=== PATIENT | female | born 1955 | race Caucasian/White ===

== ENCOUNTER 2021-03-06 10:29 | Outpatient (REF) | payer BC, SELFPAY ==
[2021-03-06 10:33] LABS: MANUAL DIFF FLAG NO
[2021-03-06 10:41] LABS: Basophils Percent Auto 0.8 % (0-2); Eosinophils Absolute Auto 0.1 X10*3/uL (0.0-0.4); Eosinophils Percent Auto 2.1 % (0-4); Hematocrit 40.9 % (37-47); Hemoglobin 13.2 g/dl (12.0-16.0); Imm Gran Abs Auto 0.01 X10*3/uL (0.00-0.03); Imm Gran Pct Auto 0.2 % (0.0-0.4); Mean Corpuscular HGB Conc 32.3 g/dl (31.0-35.0); Mean Corpuscular Hemoglobin 30.9 pg (27.0-33.0); Mean Corpuscular Volume 95.8 fL (80-98); Mean Platelet Volume 10.6 fL (9.4-12.3); Monocytes Absolute Auto 0.4 X10*3/uL (0.1-1.2); Monocytes Percent Auto 8.7 % (2-11); Neutrophils Absolute Auto 2.2 X10*3/uL (2.0-8.3); Neutrophils Percent Auto 46.2 % (45-73); Platelet Count 278 X10*3/uL (160-400); Red Blood Count 4.27 X10*6/uL (4.20-5.50); Red Cell Distribution Width 13.2 % (11.0-16.0); White Blood Count 4.8 X10*3/uL (4.8-10.8)
[2021-03-06 10:52] LABS: Glucose Urine UA NEG (NEG); Leukocyte Esterase Urine TRACE (NEG); Nitrite Urine NEG (NEG); PH 6.5 (5.0-8.0); Urine Blood NEG (NEG); Urine Ketones NEG (NEG); Urine Protein NEG (NEG-TRACE)
[2021-03-06 11:00] LABS: Appearance Urine CLEAR; Color Urine YELLOW
[2021-03-06 11:15] LABS: Alanine Aminotransferase 12 U/L (0-31); Albumin Level 4.3 g/dL (3.5-5.0); Alkaline Phosphatase 68 U/L (39-117); Anion Gap 15 (12-20); Aspartate Amino Transferase 15 U/L (5-31); Bilirubin Total 0.4 mg/dL (0.0-1.0); Blood Urea Nitrogen 18 mg/dL (9-16); Calcium 9.4 mg/dL (8.4-10.2); Carbon Dioxide 26 mmol/L (22-29); Chloride 104 mmol/L (96-108); Cholesterol 223 mg/dL; Estimated Glomerular Filt Rate 59; Glucose Fasting 91 mg/dL (60-99); HDL Cholesterol 75 mg/dL; LDL Cholesterol Calculated 136 mg/dl; Potassium 4.5 mmol/L (3.3-5.1); Sodium 140 mmol/L (135-145); Total Protein 6.9 g/dL (6.5-8.0); Triglycerides 61 mg/dL
[2021-03-06 11:29] LABS: RBC Urine 0 /HPF (0); Squamous Epithelial Cell Urine TRACE /LPF; WBC Urine 0-2 /HPF (0-4)
[2021-03-06 11:34] LABS: Vitamin D 25-OH Total 53.3 ng/mL (>30)
== END 2021-03-06 10:30 | disposition home or self-care (01) ==
LOC: HO.LNP 10:29
PROVIDERS: Visit Provider Internal Medicine
DX: Z00.00 Encounter for general adult medical examination without abnormal findings (principal); E55.9 Vitamin D deficiency, unspecified
CPT/HCPCS: 80053; 80061; 81001; 82306; 85025

== ENCOUNTER 2022-03-11 11:47 | Outpatient (REF) | payer BC, SELFPAY ==
[2022-03-11 11:51] LABS: MANUAL DIFF FLAG NO
[2022-03-11 12:19] LABS: Appearance Urine CLEAR; Color Urine YELLOW; Glucose Urine UA NEG (NEG); Leukocyte Esterase Urine 1+ (NEG); Nitrite Urine NEG (NEG); Urine Blood NEG (NEG); Urine Ketones NEG (NEG); Urine Protein NEG (NEG-TRACE)
[2022-03-11 12:23] LABS: Basophils Percent Auto 0.6 % (0-2); Eosinophils Absolute Auto 0.1 X10*3/uL (0.0-0.4); Eosinophils Percent Auto 1.9 % (0-4); Hematocrit 41.2 % (37.0-47.0); Hemoglobin 12.9 g/dl (12.0-16.0); Imm Gran Abs Auto 0.01 X10*3/uL (0.00-0.03); Imm Gran Pct Auto 0.2 % (0.0-0.4); Lymphocytes Absolute Auto 1.8 X10*3/uL (1.2-4.9); Lymphocytes Percent Auto 37.9 % (20-40); Mean Corpuscular HGB Conc 31.3 g/dl (31.0-35.0); Mean Corpuscular Hemoglobin 30.4 pg (27.0-33.0); Mean Corpuscular Volume 97.2 fL (80.0-98.0); Mean Platelet Volume 10.4 fL (9.4-12.3); Monocytes Absolute Auto 0.5 X10*3/uL (0.1-1.2); Monocytes Percent Auto 9.3 % (2-11); Neutrophils Absolute Auto 2.4 x10*3/uL (2.0-8.3); Neutrophils Percent Auto 50.1 % (45-73); Platelet Count 291 X10*3/uL (160-400); Red Blood Count 4.24 X10*6/uL (4.20-5.50); Red Cell Distribution Width 13.7 % (11.0-16.0); White Blood Count 4.8 X10*3/uL (4.8-10.8)
[2022-03-11 12:34] LABS: Alanine Aminotransferase 14 U/L (0-31); Albumin Level 4.2 g/dL (3.5-5.0); Alkaline Phosphatase 66 U/L (39-117); Anion Gap 12 (12-20); Aspartate Amino Transferase 17 U/L (5-31); Bilirubin Total 0.4 mg/dL (0.0-1.0); Blood Urea Nitrogen 13 mg/dL (9-16); Calcium 9.8 mg/dL (8.4-10.2); Carbon Dioxide 28 mmol/L (22-29); Chloride 104 mmol/L (96-108); Cholesterol 248 mg/dL; Estimated Glomerular Filt Rate > 60; Glucose Fasting 94 mg/dL (60-99); HDL Cholesterol 77 mg/dL; LDL Cholesterol Calculated 158 mg/dl; Potassium 4.5 mmol/L (3.3-5.1); Sodium 139 mmol/L (135-145); Total Protein 6.8 g/dL (6.5-8.0); Triglycerides 68 mg/dL
[2022-03-11 12:54] LABS: Vitamin D 25-OH Total 50.5 ng/mL (>30)
[2022-03-11 12:58] LABS: Renal Epithelial Cells Urine TRACE /LPF; Squamous Epithelial Cell Urine TRACE /LPF; WBC Urine 0-2 /HPF (0-4)
[2022-03-11 12:59] LABS: RBC Urine 0 /HPF (0)
== END 2022-03-11 11:48 | disposition home or self-care (01) ==
LOC: HO.LNP 11:47
PROVIDERS: Visit Provider Internal Medicine
DX: Z00.00 Encounter for general adult medical examination without abnormal findings (principal); E55.9 Vitamin D deficiency, unspecified
CPT/HCPCS: 80053; 80061; 81001; 81003; 82306; 85025

== ENCOUNTER 2023-03-15 12:30 | Outpatient (REF) | payer OTHER, MEDICARE, SELFPAY ==
--- NOTE | ~2023-03-15 | XR_ITS ---
EXAMINATION: XR HAND, RIGHT CLINICAL INFORMATION: Right 4th finger pain. COMPARISON: None available. TECHNIQUE: PA, lateral, and oblique views of the right hand. FINDINGS: There is a nondisplaced fracture involving the tuft of the distal 4th phalanx. There is also noted to be a mildly displaced fracture base of the 4th proximal phalanx with some mild dorsal displacement of the distal fracture fragment. There is associated soft tissue swelling present. XR/XR hand RT min 3V IMPRESSION: Fractures base of the 4th proximal phalanx and 4th distal phalanx tuft.
== END 2023-03-15 12:31 | disposition home or self-care (01) ==
LOC: HO.HOSX 12:30
PROVIDERS: PCP Internal Medicine; Visit Provider Physician Assistant
DX: S62.604A Fracture of unspecified phalanx of right ring finger, initial encounter for closed fracture (principal); S61.451A Open bite of right hand, initial encounter; W54.0XXA Bitten by dog, initial encounter
CPT/HCPCS: 26720; 29085; 73130; 99202

== ENCOUNTER 2023-04-12 08:03 | Outpatient (REF) | payer OTHER, MEDICARE, SELFPAY ==
--- NOTE | ~2023-04-12 | XR_ITS ---
EXAMINATION: XR HAND, RIGHT CLINICAL INFORMATION: Pain. COMPARISON: Radiographs dated 03/15/2023. TECHNIQUE: PA, lateral, and oblique views of the right hand. FINDINGS: A mildly displaced transverse fracture is again seen of the tuft of the fourth distal phalanx. As well, there is stable alignment of a mildly impacted transverse fracture of the base of the fourth proximal phalanx. There is moderate osteoarthritic change of the second and fifth distal interphalangeal joints, with peripheral osteophyte formation. There is very mild osteoarthritic change of the fourth distal interphalangeal joint. There is mild osteoarthritic change of the interphalangeal joint of the thumb and of the first metacarpophalangeal joint. There is moderate osteoarthritic change of the first carpometacarpal joint. The proximal and distal carpal rows are intact. No focal soft tissue swelling, gas or foreign body is seen. XR/XR hand RT min 3V IMPRESSION: There is well-maintained alignment of fractures of the tuft of the fourth distal phalanx of the base of the fourth proximal phalanx.
== END 2023-04-12 08:04 | disposition home or self-care (01) ==
LOC: HO.HOSX 08:03
PROVIDERS: Visit Provider Physician Assistant
DX: S62.604D Fracture of unspecified phalanx of right ring finger, subsequent encounter for fracture with routine healing (principal); S61.451D Open bite of right hand, subsequent encounter; W54.0XXD Bitten by dog, subsequent encounter
CPT/HCPCS: 73130

== ENCOUNTER 2023-05-10 07:43 | Outpatient (REF) | payer OTHER, MEDICARE, SELFPAY | END 2023-05-10 07:44 | disposition home or self-care (01) | LOC: HO.HOSX 07:43 | PROVIDERS: Visit Provider Physician Assistant | DX: Z13.89 Encounter for screening for other disorder (principal) ==

== ENCOUNTER 2023-12-12 12:58 | Outpatient (AMB) | payer MEDICARE, SELFPAY ==
[2023-12-12 13:05] VITALS: BP 120/70; PULSE 78; BMI 21.2
--- NOTE | 2023-12-12 13:05 | A.OFFVIS_ITS ---
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 Patient was concerned about heart disease and calcium score shows elevated calcium score predominantly in the LAD at 207. Also noted on the CT scan was enlarged thoracic aorta at 4.3 cm. Patient denies any cardiac symptoms. She says she is very functional and denies any exertional chest pain or shortness of breath. She has never had prior vascular event. Her LDL cholesterol is elevated in the upper 150s. She has currently not on any treatment. She denies any prolonged palpitations, lightheadedness, syncope. [facility] Medical History Enlarged thoracic aorta CAD (coronary artery disease) Family History Paternal Grandfather FH: heart attack Mother Pacemaker Brother A-fib Social History Alcohol intake: current Patient Tobacco Use Status: Never used Tobacco Current occupational status: employed Current occupation: right hand dominant Review of Systems Const Reports chills, Reports fatigue, Reports fever(s), Reports frequent falls, Reports weakness, Reports weight gain and Reports weight loss ENT Reports dizziness Card Reports chest pain, Reports leg edema, Reports lightheadedness, Reports palpitations, Reports dyspnea, Reports dyspnea on exertion and Reports orthopnea Resp Reports cough, Reports dyspnea and Reports dyspnea on exertion GI Reports bloating and Reports change in bowel habits Musc Reports muscle weakness, Reports numbness and Reports tingling Neuro Reports dizziness, Reports frequent falls, Reports numbness, Reports tingling and Reports weakness Endo Reports fatigue and Reports palpitations Physical Exam Vital Signs: BMI result Body Mass Index 21.2 Const General: cooperative, comfortable, no acute distress, well developed, alert, awake and Physically active Nutritional Appearance: well nourished and thin Orientation/consciousness: patient oriented x3 Limitations: no limitations HEENT Head: Yes normocephalic and Yes atraumatic Neck Neck: Yes trachea midline, Yes supple and Yes no JVD Resp Effort & Inspection: normal respiratory effort Auscultation: clear to auscultation bilaterally Cardio Jugular venous distension: no JVD Palpation: normal PMI Rate: regular rate Rhythm: regular rhythm Heart sounds: S1 normal heart sound present, S2 normal heart sound present, no click, no gallops, no murmurs and no rubs Bruits: no carotid bruits Peripheral pulses: Peripheral pulses 2+ throughout GI Auscultation: normal bowel sounds Skin General skin exam: no rashes or lesions noted Neuro General: patient oriented x3 and no focal motor deficits Extrem General: Yes no clubbing, cyanosis or edema Office Procedures EKG Details: EKG shows normal sinus rhythm with normal EKG with low voltage [id number], Complete Assessment & Plan Assessment & Plan (1) CAD (coronary artery disease): Code(s): I25.10 - Atherosclerotic heart disease of [place] coronary artery without angina pectoris Plan: Presence of coronary calcium which is consistent with presence of coronary ath erosclerosis as a surrogate marker. Predominantly located in the LAD territory. She is strong family history for coronary artery disease. She currently has no symptoms at activity level. Silent myocardial ischemia needs to be ruled out. Will suggest a stress echocardiogram to assess for the same. Further treatment based on the findings. We discussed the mechanism of coronary artery disease and pathophysiology of coronary atherosclerosis. Given high lipids and family history, I would suggest her to be started on statin therapy to target goal LDL less than 70 mg/dL. Discussed with her about the need for statin therapy and potential side effects. She understands agrees. Will start on Crestor 20 mg daily and follow-up lipid panel and high sensitivity CRP in 2 months time. Goals of therapy were discussed his to reduce need for vascular intervention and/or acute vascular events such as myocardial infarction. (2) Enlarged thoracic aorta: Code(s): I77.89 - Other specified disorders of arteries and arterioles Plan: Enlarged thoracic aorta noted on CT scan. Will obtain echocardiogram to assess for the same. Most likely cause for it is atherosclerotic disease. There is no family history of ascending thoracic aneurysm. Management will be with statin therapy. Avoidance of sudden strenuous isometric exercise was discussed. Continue to liver lifestyle. No need for surgical intervention if it is enlarged. Will require annual surveillance if it is truly enlarged on the echocardiogram. Follow up in the clinic in 1 year's time, sooner p.r.n.. Thank you for allowing me to partake in her care Orders: Orders Lipid Panel 2 Months I25.10 - Atherosclerotic heart disease of [place] coronary artery without angina pectoris CA echo stress exercise Today I25.10 - Atherosclerotic heart disease of [place] coronary artery without angina pectoris CA echo transthoracic complete Today I77.89 - Other specified disorders of arteries and arterioles CRP High Sensitivity 2 Months E78.5 - Hyperlipidemia, unspecified, I25.10 - Atherosclerotic heart disease of [place] coronary artery without angina pectoris Medications: New rosuvastatin (Crestor) 20 mg PO DAILY 30 tabs 5RF I25.10 - Atherosclerotic heart disease of [place] coronary artery without angina pectoris Coding Level of Care Code New Pt Level 4 (18135) Diagnoses CAD (coronary artery disease) I25.10 Enlarged thoracic aorta I77.89 CPT Codes EKG - CPT: 34002-Lhkearnikzhxoncdz, Complete ([id number])
== END 2023-12-12 13:44 | disposition home or self-care (01) ==
PROVIDERS: PCP Internal Medicine; Visit Provider Internal Medicine Cardiovascular Disease
DX: I25.10 Atherosclerotic heart disease of native coronary artery without angina pectoris (principal); I77.89 Other specified disorders of arteries and arterioles
CPT/HCPCS: 93010; 99204

== ENCOUNTER → 2023-12-12 12:58 | Outpatient (BNVA) | payer MEDICARE, SELFPAY | PROVIDERS: PCP Internal Medicine; Visit Provider Internal Medicine Cardiovascular Disease | DX: I25.10 Atherosclerotic heart disease of native coronary artery without angina pectoris (principal); I77.89 Other specified disorders of arteries and arterioles | CPT/HCPCS: 93005; 99202 ==

== ENCOUNTER → 2023-12-28 14:32 | Outpatient (REF) | payer MEDICARE, SELFPAY ==
--- NOTE | 2023-12-28 14:35 | CA_ITS ---
Transthoracic Echocardiogram Patient (Last, First, Middle): Sirena Padilla D Gender: Female Date of : 1955 Age: 68 Procedure Date: 12/28/2023 Procedure Type: Transthoracic Echocardiogram Location: OP Height: 162.56 cm Weight: 54.43 kg BSA: 1.57 m2 Heart Rate: bpm BP: 118 / 68 mmHg Sheet Fed Printer: TO Referring MD: Tremaine Bella MD Symptoms: I77.89 - Other specified disorders of arteries and arterioles Study Quality: Fair ECG Rhythm: Sinus Conclusions: - The left ventricular systolic function is normal. The calculated ejection fraction is 64% by biplane method. - No obvious valvular pathology seen on this study. - There is mild dilatation of the ascending aorta measuring 4.30 cm. Findings Left Ventricle Normal left ventricular cavity size. The left ventricular systolic function is normal. The calculated ejection fraction is 64% by biplane method. There is no evidence of regional wall motion abnormalities. Diastolic function is normal for age. LV peak GLS -20.6%. Right Ventricle Normal right ventricular cavity size and systolic function. Atria Both atria are normal in size. Aortic Valve The aortic valve structure and function is likely normal. There is no aortic valve stenosis. There is trace (trivial) aortic valve regurgitation. Mitral Valve The mitral valve appears normal. There is no mitral valve regurgitation. There is no mitral valve stenosis. Pulmonic Valve The pulmonic valve is likely normal. Tricuspid Valve Normal tricuspid valve structure. There is trace tricuspid valve regurgitation. There is no evidence of pulmonary hypertension. Great Vessels The aortic arch is normal in size. There is mild dilatation of the ascending aorta measuring 4.30 cm. Venous The inferior vena cava is normal in size and collapses greater than 50% with inspiration. Pericardium/Pleural There is no evidence of pericardial effusion. Prior Study Comparison No prior study available for comparison. Recommendations, Care & Conclusions No obvious valvular pathology seen on this study. Measurements 2D Linear Measurements IVSd: 0.81 0.6-0.9/0.6-1.0 cm LVIDd: 3.87 3.9-5.3/4.2-5.9 cm LVIDd Index: 2.46 2.4-3.2/2.2-3.1 cm/m2 LVIDs: 2.75 2.0-3.6 cm LVPWd: 0.68 0.7-1.1 cm LA Diam: 1.90 2.7-3.8/3.0-4.0 cm LAIDs Index: 1.21 1.5-2.3 cm/m2 LV Mass: 99.87 67-162/88-224 g LV Mass Index: 63.61 43-95/49-115 g/m2 LVOT Diam: 2.20 3.0+(-)1.3 cm 2D Systolic Function EF 4C: 68.70 >55% EF 2C: 61.10 >55% EF BiP: 63.70 >55% Mitral Valve MV Pk E: 0.65 MV PK A: 0.56 MV Decel Time: 213.00 E/A: 1.20 E'Lateral: 7.83 E'Medial: 6.42 E/E' Med: 10.10 E/E' Lat: 8.30 PHT: 63.00 MVA PHT: 3.49 Decel [place]: 3.03 Aortic Valve AoV Pk Dustin: 1.23 AoV Mn Dustin: 0.88 AoV VTI: 0.27 AoV Pk Grad: 6.00 Aov Mn Grad: 4.00 ALMA Cont.VTI: 3.07 LVOT LVOT Pk Dustin: 1.01 LVOT Mn Dustin: 0.58 LVOT VTI: 0.21 LVOT Pk Grad: 4.00 LVOT Mn Grad: 2.00 LVOT Diam: 2.20 LVOT Area: 3.80 Diastolic Function MV Pk E: 0.65 MV Pk A: 0.56 E/A: 1.20 E'Medial: 6.42 E/E' Med: 10.10 E' Laterial: 7.83 E/E' Lat: 8.30 Right Ventricle TAPSE (mm): 24.40 TVS' Dustin: 12.10 Tricuspid Valve TR Pk Dustin: 1.53 TR Pk Grad: 9.00 RA Press: 3.00 RVSP: 12.00 Great Vessels Aorta Sinus of Valsalva: 3.37 2.0-3.5 cm Ao Asc: 4.30 2.1-3.4 cm Ao Arch: 2.80 Updated in Other Vendor System with Status of Final Marlon Painter MD electronically signed on 12/30/2023 12:45:42 PM with status of Final
== END ==
LOC: HO.CARD 14:32
PROVIDERS: PCP Internal Medicine; Visit Provider Internal Medicine Cardiovascular Disease
DX: I77.89 Other specified disorders of arteries and arterioles (principal)
CPT/HCPCS: 93306

== ENCOUNTER → 2023-12-28 14:35 | Outpatient (BNV) | payer MEDICARE, SELFPAY | PROVIDERS: PCP Internal Medicine; Visit Provider Internal Medicine | DX: I77.810 Thoracic aortic ectasia (principal) | CPT/HCPCS: 93306 ==

== ENCOUNTER → 2024-01-02 10:58 | Outpatient (REF) | payer MEDICARE, SELFPAY ==
--- NOTE | 2024-01-02 11:01 | CA_ITS ---
Acquisition Time: 2024-01-02 11:30:03 Total Exercise Time: 00:09:33 Test Indications: Screening for CAD Medications: VIT D Protocol: ABBIE Max HR: 160 BPM 103% of Pred: 154 BPM Max BP: 162/070 mmHG Max Work Load: 10.9 METS Exercise stress test exercise 9 min 33 sec of Abbie protocol achieving approximately 100% MPHR, without anginal symptoms, with isolated PVC, with normotensive response to exercise, without EKG changes. Echo images obn=tained by tech at rest and immediately post peak exercise. Definity contrat used. Test reviewed with Dr. Kwong. Referred By: Tremaine Bella Overread By: Paulina Guerrero
== END ==
LOC: HO.CARD 10:58
PROVIDERS: PCP Internal Medicine; Visit Provider Internal Medicine Cardiovascular Disease
DX: I25.10 Atherosclerotic heart disease of native coronary artery without angina pectoris (principal)
CPT/HCPCS: 93350; Q9957

== ENCOUNTER → 2024-01-02 11:01 | Outpatient (BNV) | payer MEDICARE, SELFPAY | PROVIDERS: PCP Internal Medicine; Visit Provider Nurse Practitioner | DX: I25.10 Atherosclerotic heart disease of native coronary artery without angina pectoris (principal) | CPT/HCPCS: 93016; 93018; 93350; 93352 ==

== ENCOUNTER 2024-08-13 10:58 | Outpatient (REF) | payer MEDICARE, SELFPAY ==
[2024-08-13 11:03] LABS: MANUAL DIFF FLAG NO
[2024-08-13 11:53] LABS: Basophils Percent Auto 0.6 % (0-2); Eosinophils Absolute Auto 0.1 X10*3/uL (0.0-0.4); Eosinophils Percent Auto 1.2 % (0-4); Hematocrit 39.1 % (37.0-47.0); Hemoglobin 12.6 g/dl (12.0-16.0); Imm Gran Abs Auto 0.01 X10*3/uL (0.00-0.03); Imm Gran Pct Auto 0.2 % (0.0-0.4); Lymphocytes Absolute Auto 1.9 X10*3/uL (1.2-4.9); Lymphocytes Percent Auto 38.4 % (20-40); Mean Corpuscular HGB Conc 32.2 g/dl (31.0-35.0); Mean Corpuscular Hemoglobin 31.3 pg (27.0-33.0); Mean Platelet Volume 10.4 fL (9.4-12.3); Monocytes Absolute Auto 0.4 X10*3/uL (0.1-1.2); Neutrophils Absolute Auto 2.6 x10*3/uL (2.0-8.3); Neutrophils Percent Auto 51.6 % (45-73); Platelet Count 269 X10*3/uL (160-400); Red Blood Count 4.03 X10*6/uL (4.20-5.50); Red Cell Distribution Width 13.3 % (11.0-16.0)
[2024-08-13 12:00] LABS: Appearance Urine Clear; Color Urine Yellow; Glucose Urine UA Negative (Negative); Leukocyte Esterase Urine Small (1+) (Negative); Nitrite Urine Negative (Negative); PH 5.5 (5.0-9.0); Specific Gravity - Urine 1.025 (1.005-1.025); UMIC TRIGGER UACC YES; Urine Blood Negative (Negative); Urine Ketones Negative (Negative); Urine Protein Negative (Neg-Trace)
[2024-08-13 12:07] LABS: Bacteria Urine None Seen (None Seen); Hyaline Casts Urine 0-2 /LPF (0-2); RBC Urine 0-2 /HPF (0-2); UACC Culture Trigger YES
[2024-08-13 12:15] LABS: Alanine Aminotransferase 14 U/L (0-31); Albumin Level 4.2 g/dL (3.5-5.0); Alkaline Phosphatase 57 U/L (39-117); Anion Gap 11 (12-20); Aspartate Amino Transferase 16 U/L (5-31); Bilirubin Total 0.4 mg/dL (0.0-1.0); Blood Urea Nitrogen 17 mg/dL (9-16); Calcium 9.6 mg/dL (8.4-10.2); Carbon Dioxide 27 mmol/L (22-29); Chloride 107 mmol/L (96-108); Cholesterol 218 mg/dL (<200); Estimated Glomerular Filt Rate > 60; Glucose Fasting 96 mg/dL (60-99); HDL Cholesterol 68 mg/dL (>40); LDL Cholesterol Calculated 134 mg/dL (<100); Potassium 4.1 mmol/L (3.3-5.1); Sodium 141 mmol/L (135-145); Total Protein 7.1 g/dL (6.5-8.0); Triglycerides 81 mg/dL (<150)
[2024-08-13 12:23] LABS: Vitamin D 25-OH Total 80.7 ng/mL (>30)
== END 2024-08-13 10:59 | disposition home or self-care (01) ==
LOC: HO.LNP 10:58
PROVIDERS: Visit Provider Internal Medicine
DX: E55.9 Vitamin D deficiency, unspecified (principal); I25.10 Atherosclerotic heart disease of native coronary artery without angina pectoris
CPT/HCPCS: 80053; 80061; 81001; 82306; 85025; 87086

== ENCOUNTER 2024-12-19 14:56 | Outpatient (AMB) | payer MEDICARE, SELFPAY ==
[2024-12-19 14:59] VITALS: BP 122/76; PULSE 67; BMI 20.9
--- NOTE | 2024-12-19 14:59 | A.OFFVIS_ITS ---
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 She has history of an enlarged thoracic aorta and coronary artery disease, which was identified through a coronary calcium score she pursued due to a strong family history of cardiac disease. The calcium score revealed elevated calcium deposits mostly in the LAD. With her LDL cholesterol levels elevated, in her previous visit patient was started on rosuvastatin therapy. However, the patient developed side effects including back pain, palpitations, and agitation, leading to a switch to atorvastatin 10 mg. She continued to experience similar symptoms on atorvastatin, prompting her to discontinue statin therapy entirely. The patient states that she has developed a very strict diet including mostly plant based diet. She believes that her cholesterol levels have improved and therefore is only taking Co Q10 enzyme. Patient otherwise denies any exertional chest pain, shortness of breath, palpitations, dizziness, orthopnea, PND, leg edema, presyncope, or syncope. [facility] Medical History Enlarged thoracic aorta CAD (coronary artery disease) Family History Paternal Grandfather FH: heart attack Mother Pacemaker Brother A-fib Social History Alcohol intake: current Patient Tobacco Use Status: Never used Tobacco Current occupational status: employed Current occupation: right hand dominant Review of Systems Const Denies chills, Denies fatigue, Denies fever(s), Denies weight gain and Denies weight loss ENT Denies dizziness Card Denies chest pain, Denies leg edema, Denies lightheadedness, Denies palpitations, Denies dyspnea on exertion, Denies orthopnea and Denies other Resp Denies cough and Denies dyspnea on exertion GI Denies hematochezia and Denies change in stool character Musc Denies abnormal gait, Denies muscle weakness, Denies numbness, Denies radiating pain into limb and Denies tingling Neuro Denies abnormal gait, Denies dizziness, Denies numbness and Denies tingling Endo Denies fatigue and Denies palpitations Physical Exam Vital Signs: Last Vital Signs Pulse 67 12/19/24 14:59 BP 122/76 12/19/24 14:59 BMI result Body Mass Index 20.9 Const General: cooperative, healthy appearing, comfortable and no acute distress Orientation/consciousness: patient oriented x3 HEENT Head: Yes normal to inspection Neck Neck: Yes normal visual inspection, Yes trachea midline and Yes supple Chest Chest palpation & inspection: normal inspection of the chest Resp Effort & Inspection: normal respiratory effort Auscultation: clear to auscultation bilaterally, no crackles, no rales, no rhonchi and no wheezes Cardio Jugular venous distension: no JVD Palpation: normal PMI Rate: regular rate Rhythm: regular rhythm Heart sounds: S1 normal heart sound present, S2 normal heart sound present, no click, no gallops, no murmurs and no rubs Peripheral pulses: Peripheral pulses 2+ throughout GI Inspection: Yes normal to inspection Palpation (GI): Soft to palpation Auscultation: normal bowel sounds Skin General skin exam: no rashes or lesions noted Neuro General: patient oriented x3 Extrem General: Yes normal to inspection, No no pedal edema and No calf tenderness Psych Appearance: grossly normal Mental Status: mental status grossly normal Speech and movement: Normal speech and movement present Office Procedures EKG Details: EKG today shows underlying normal sinus rhythm at 67 beats per minute, low- voltage QRS, [place], [place]. [id number], Complete Assessment & Plan Assessment & Plan (1) CAD (coronary artery disease): Code(s): I25.10 - Atherosclerotic heart disease of [place] coronary artery without angina pectoris Category: Medical Plan: 05/25/2023- coronary calcium score at 2 7, predominantly in the LAD. Most recent LDL was 134, with an ideal goal for her less than 70. Given her intolerance to statin therapy, we discussed the potential option of PCSK9 inhibitor therapy as an alternative for managing her cholesterol. However, the patient expressed a desire to recheck her cholesterol levels before proceeding with this option, as she believes her efforts in improving her diet has been effective. We will follow-up on her cholesterol levels and reassess the treatment plan accordingly. (2) Enlarged thoracic aorta: Code(s): I77.89 - Other specified disorders of arteries and arterioles Category: Medical Plan: 12/28/2023- echo showed normal EF at 64%, mild dilation of the ascending aorta measuring 4.3 cm. We will repeat echo and monitor this periodically. Follow-up in the office in 1 year or sooner if needed. In the interim, patient will contact us with any concerns. Discussed in detail the red flags for angina and instructed the patient to seek him ER care if she is experiencing any concerning symptoms. This note was generated using voice recognition software. While every effort has been made to ensure accuracy and proper repeat photocomposing machine operator, there may be occasional errors that could affect the content or meaning of the described symptoms. Orders: Orders Lipid Panel Today I25.10 - Atherosclerotic heart disease of [place] coronary artery without angina pectoris AMB EKG-In Office Today I25.10 - Atherosclerotic heart disease of [place] coronary artery without angina pectoris CA echo transthoracic complete Today I77.89 - Other specified disorders of arteries and arterioles Coding Level of Care Code Est Pt Level 4 (12545) Diagnoses CAD (coronary artery disease) I25.10 Enlarged thoracic aorta I77.89 CPT Codes EKG - CPT: 62922-[id number], Complete ([id number]) Time Spent (min) 31 Comment Time spent in reviewing the chart, test results, assessment, counseling and documentation.
--- OUTSIDE RECORDS SUMMARY | 2024-12-19 17:05 | XMS_ITS ---
Author Organization Parrish Martinez MD Address [address] [place] [phone] Care Team Providers Care Bias Machine Operator Helper Name Role Phone Parrish Martinez Primary Care Provider [phone] Results Component Value Reference Range Notes Complete Blood Count Auto Di ff Reviewed date:08/13/2024 12:29:45 PM Interpretation: Performing Lab:[facility], [address] [place] [phone] Notes/Report: White Blood Count 5.0 4.8-10.8 X10*3/uL Red Blood Count 4.03 4.20-5.50 X10*6/uL Hemoglobin 12.6 12.0-16.0 g/dl Hematocrit 39.1 37.0-47.0 % Mean Corpuscular Volume 97.0 80.0-98.0 fL Mean Corpuscular Hemoglobin 31.3 27.0-33.0 pg Mean Corpuscular HGB Conc 32.2 31.0-35.0 g/dl Red Cell Distribution Width 13.3 11.0-16.0 % Platelet Count 269 160-400 X10*3/uL Mean Platelet Volume 10.4 9.4-12.3 fL Neutrophils Percent Auto 51.6 45-73 % Imm Gran Pct Auto 0.2 0.0-0.4 % Lymphocytes Percent Auto 38.4 20-40 % Monocytes Percent Auto 8.0 2-11 % Eosinophils Percent Auto 1.2 0-4 % Basophils Percent Auto 0.6 0-2 % NRBC Pct Auto 0.0 0.0-0.2 /100WBC Neutrophils Absolute Auto 2.6 2.0-8.3 x10*3/u L Imm Gran Abs Auto 0.01 0.00-0.03 X10*3/uL Lymphocytes Absolute Auto 1.9 1.2-4.9 X10*3/u L Monocytes Absolute Auto 0.4 0.1-1.2 X10*3/uL Eosinophils Absolute Auto 0.1 0.0-0.4 X10*3/u L Basophils Absolute Auto 0.0 0.0-0.2 X10*3/uL NRBC Abs Auto 0.000 0.0-0.012 X10*3/uL Comprehensive [place]. Panel Fa st Reviewed date:08/13/2024 12:43:16 PM Interpretation: Performing Lab:[facility], [address] [place] [phone] Notes/Report: Sodium 141 135-145 mmol/L Potassium 4.1 3.3-5.1 mmol/L Chloride 107 96-108 mmol/L Carbon Dioxide 27 22-29 mmol/L Anion Gap 11 12-20 Blood Urea Nitrogen 17 9-16 mg/dL Creatinine 0.90 0.5-1.4 mg/dL Estimated Glomerular Filt Rate > 60 NOTE: For -Hungarian individuals, multiply the result by 1.210. Chronic Kidney Disease: Estimated GFR < 60 mL/min/1.73m2 Severe Kidney Disease: Estimated GFR < 15 mL/min/1.73m2 Glucose Fasting 96 60-99 mg/dL Calcium 9.6 8.4-10.2 mg/dL Bilirubin Total 0.4 0.0-1.0 mg/dL Aspartate Amino Transferase 16 5-31 U/L Alanine Aminotransferase 14 0-31 U/L Total Protein 7.1 6.5-8.0 g/dL Albumin Level 4.2 3.5-5.0 g/dL Alkaline Phosphatase 57 39-117 U/L Lipid Panel Reviewed date:08/13/2024 12:29:56 PM Interpretation: Performing Lab:[facility], [address] [place] [phone] Notes/Report: Triglycerides 81 <150 mg/dL Desirable Triglyceride: less than 150 mg/dL Borderline High Triglyceride 150-199 mg/dL High Triglyceride: 200-499 mg/dL Very High Triglyceride: greater than or equal to 5OO mg/dL Cholesterol 218 <200 mg/dL Desirable Cholesterol: less than 200 mg/dL Borderline High Cholesterol: 200-239 mg/dL High Cholesterol: greater than 239 mg/dL LDL Cholesterol Calculated 134 <100 mg/dL Desirable LDL: less than 100 mg/dL Near Optimal/Above Optimal LDL: 110-129 mg/dL Borderline High LDL: 130-159 mg/dL High LDL: 160-189 mg/dL Very High LDL: greater than or equal to 190 mg/dL HDL Cholesterol 68 >40 mg/dL Desirable HDL: greater than 40 mg/dL Note: This HDL assay may give artificially low results in patients with liver disease. Vitamin D 25-OH Total Reviewed date:08/13/2024 12:33:39 PM Interpretation: Performing Lab:[facility], [address] [place] [phone] Notes/Report: Vitamin D 25-OH Total 80.7 >30 ng/mL Health Based Reference Values* < 20 ng/mL Deficient 20-30 ng/mL Insufficient > 30 ng/mL Sufficient *Trace NOEL. N Engl J Med. 2007;357:266-280 Care must be taken in interpreting Vitamin D results from different laboratories and methodologies. Published data demonstrated that results from patients undergoing hemodialysis may show a negative bias when tested with various automated 25-OH vitamin D assays when compared to LC-MS/MS. When testing samples from patients whose predominant form of Vitamin D is Vitamin D2, such as patients receiving Vitamin D2 supplementation, results that are subtherapeutic should be confirmed with another method such as LC-MS/MS. UA ClnCatch+Micro w/rflx Cul t Reviewed date:08/13/2024 12:56:12 PM Interpretation: Performing Lab:[facility], [address] [place] [phone] Notes/Report: Urine, Clean Catch Color Urine Yellow Appearance Urine Clear PH 5.5 5.0-9.0 Glucose Urine UA Negative Negative mg/dL Urine Blood Negative Negative Specific [employer] - Urine 1.025 1.005-1.025 Urine Protein Negative Neg-Trace mg/dL Urine Ketones Negative Negative mg/dL Nitrite Urine Negative Negative Leukocyte Esterase Urine Small (1+) Negative RBC Urine 0-2 0-2 /HPF WBC Urine 6-10 0-5 /HPF Squamous Epithelial Cell Urine 3-5 0-2 /HPF Bacteria Urine None Seen None Seen Hyaline Casts Urine 0-2 0-2 /LPF REASON FOR VISIT Annual labs Encounters Encounter Location Date Provider Diagnosis Parrish Martinez MD [address] [place] [phone] 08/13/2024 Parrish Martinez Vitamin D deficiency E55.9 and Arteriosclerotic coronary artery disease I25.10 Assessments Encounter Date Diagnosis (ICD Code) Assessment Notes Treatment Notes Treatment Clinical Notes Section Notes 08/13/2024 Vitamin D deficiency (ICD-10 - E55.9) 08/13/2024 Arteriosclerotic coronary artery disease (ICD-10 - I25.10) Plan Of Treatment Next Appt Details Provider Name:Parrish feldman, 08/15/2025 07:45:00 AM, [address] [place] [address], [address], [phone], Provider Name:Parrish feldman, 08/22/2025 11:00:00 AM, [address] [place] [address], [phone], Progress Notes * Andrez PADILLAJoseOB:1955 ( 69 yo F)Acc No.[id number]:08/13/2024 Progress Note Patient:?Sirena PADILLA Provider:?Parrish Martinez MD :1955???Age:68 Y???Sex:Female D ate:08/13/2024 Address:[address] [place], [place] [phone] Subjective: * Chief Complaints: * ???1. Annual labs. * Medical History:? Objective: * Vitals:? Assessment: * Assessment: 1.?Vitamin D deficiency - E5 5.9 (Primary)???2.?Arteriosclerotic coronary artery disease - I25.10??? Plan: * Treatment: 2.?Arteriosclerotic coronary artery disease?LAB: Complete Blood Count Auto Diff (Collection Date & Time - 08/13/2024 08:15 AM) ?LAB: Comprehensive [place]. Panel Fast (Collection Date & Time - 08/13/2024 08:15 AM) ?LAB: Lipid Panel (Collection Date & Time - 08/13/2024 08:15 AM) ?LAB: Vitamin D 25-OH Total (Collection Date & Time - 08/13/2024 08:15 AM) ?LAB: UA ClnCatch+Micro w/rflx Cult (Collection Date & Time - 08/13/2024 08:15 AM) * Procedure Codes:?17352 VENIP UNCT, ROUTINE* * * The named appointment provid er may or may not be the originator of this progress note, and it is not deemed complete until electronically signed by the appointment provider. Sign off status: Pending * Provider:?Parrish Martinez MD Date:?0 08/13/2024 Generated for Any rutherford/Zana/Ankitaitting on:?12/19/2024 05:05 PM EST
--- OUTSIDE RECORDS SUMMARY | 2024-12-19 17:05 | XMS_ITS ---
Author Organization Parrish Martinez MD Address [address] [place] [phone] Care Team Providers Care Opto Mechanical Engineer Name Role Phone Parrish Martinez Primary Care Provider Allergies No Known Allergies Results Component Value Reference Range Notes Electrocardiogram (EKG) Reviewed date:08/20/2024 11:40:55 AM Interpretation: Performing Lab: Notes/Report: 0 REASON FOR VISIT Annual Medications Medication SIG (Take, Route, Fr equency, Duration) Notes Start Date End Date Status Ketoconazole 2 % 1 application Custom Feed Corn Operator ally Once a day for 14 day(s) 08/20/2024 Active Ibuprofen 200 MG 1 tablet with food o r milk as needed Orally Three times a day Active Social History Tobacco Use: Social History Observation Description Date Details (start date - stop date) Never Smoker NA - NA Tobacco Use/Smoking Question Answer Notes Patient is a nonsmoker Additional Findings: Tobacco Non-User Cu rrent non-smoker, currently using no form of tobacco Alcohol Screen Question Answer Notes Did you have a drink contain ing alcohol in the past year? Yes How often did you have a dri nk containing alcohol in the past year? 2 to 4 times a month (2 points) How many drinks did you have on a typical day when you were drinking in the past year? 1 or 2 drinks (0 point) How often did you have 6 or more drinks on one occasion in the past year? Never (0 point) Points 2 Interpretation Negative Problems Problem Type SNOMED Code ICD Code Onset Dates Problem Status W/U Status Risk Notes Problem [id number] Coronary artery disease involving [place] coronary artery of [place] heart without angina pectoris (I25.10) Active confirmed Vital Signs Blood pressure systolic 96 mm Hg 08/20/20 24 Blood pressure diastolic 60 mm Hg 024 Height 64 in 08/20/2024 Weight 120 lbs 08/20/2024 BMI 20.60 kg/m2 08/20/2024 weight is down 2 pounds [facility] 06-15-24 Encounters Encounter Location Date Provider Diagnosis Parrish Martinez MD [address] [place] [address] [place] [phone] 08/20/2024 Parrish Martinez Atypical chest pain R07.89 ; Annual physical exam Z00.00 ; Coronary artery disease involving [place] coronary artery of [place] heart without angina pectoris I25.10 ; Encounter for screening for malignant neoplasm of colon Z12.11 ; Encounter for screening for malignant neoplasm of rectum Z12.12 ; Tinea corporis B35.4 and Vitamin D deficiency E55.9 Assessments Encounter Date Diagnosis (ICD Code) Assessment Notes Treatment Notes Treatment Clinical Notes Section Notes 08/20/2024 Atypical chest pain (ICD-10 - R07.89) ecg was completely normal 08/20/2024 Annual physical exam (ICD-10 - Z00.00) labs reviewed and discussed with patient 08/20/2024 Coronary artery disease involving [place] coronary artery of [place] heart without angina pectoris (ICD-10 - I25.10) 08/20/2024 Encounter for screening for malignant neoplasm of colon (ICD-10 - Z12.11) order faxed to [facility] 08/20/2024 Encounter for screening for malignant neoplasm of rectum (ICD-10 - Z12.12) pending [facility] tresting 08/20/2024 Tinea corporis (ICD-10 - B35.4) 08/20/2024 Vitamin D deficiency (ICD-10 - E55.9) has now over replaced and should decrease to every other day Plan Of Treatment Medication Medication Name Sig Start Date Stop Date Notes Ketoconazole 2 % 1 application Custom Feed Corn Operator ally Once a day for 14 day(s) 08/20/2024 Treatment Notes Assessment Notes Atypical chest pain ecg was completely n ormal Annual physical exam labs reviewed and d iscussed with patient Encounter for screening for malignant neoplasm of colon order faxed to [facility] Encounter for screening for malignant neoplasm of rectum pending cologuard tresting Vitamin D deficiency has now over replac ed and should decrease to every other day Next Appt Details Follow Up: 1 Year, Reason: Provider Name:Parrish feldman, 08/15/2025 07:45:00 AM, [address] [place] [address], [address], [phone], Provider Name:Parrish feldman, 08/22/2025 11:00:00 AM, [address] [place] [address], [place] [address], [place], [place], [phone], Progress Notes * Mariely PADILLAOB:1955 ( 68 yo F)Acc No.[id number]:08/20/2024 Progress Notes Patient:?Sirena Padilla Provider:?Parrish Martinez MD :1955???Age:68 Y???Sex:Female D ate:08/20/2024 Address:[address] [place], [place] [phone] Subjective: * Chief Complaints: * ???Annual * HPI: ???Depression Screening:?PHQ-9?Little interest or pleasure in doing things?Not at all,?Feeling down, depressed, or hopeless?Not at all,?Trouble falling or staying asleep, or sleeping too much?Not at all,?Feeling tired or having little energy?Not at all,?Poor appetite or overeating?Not at all,?Feeling bad about yourself or that you are a failure, or have let yourself or your family down?Not at all,?Trouble concentrating on things, such as reading the newspaper or watching television?Not at all,?Moving or speaking so slowly that other people could have noticed; or the opposite, being so fidgety or restless that you have been moving around a lot more than usual?Not at all,?Thoughts that you would be better off or of hurting yourself in some way?Not at all,?Total Score?0.?Interpretation and Intervention?Depression Screening Findings?Negative,?Follow-Up for Depression?: review of PHQ-9 found negative result, no follow-up needed.?Communication Needs:?Communication Needs?Does the patient have a hearing impairment?No,?Does the patient have a vision impairment??Yes,?If yes, what is the vision impairment??Glasses,?Does the patient have a cognition impairment??No.?Fall Risk:?History?Have you had any falls with injury in the past year??No,?Have you had two or more falls in the past year??No.?SDOH Questions:?SDOH Questions?In the past year have you been worried about losing housing??No,?In the past year have you or any family members you live with been unable to get any of the following when it was really needed? Check all that apply:?None.?Symptom(s):? patient is a 68 yo female here for physical/ was unable to tolerate statins. had fluttering and pain in neck. started the second day. came and went on and off. called cardiology and they thought it was the statin. gave a different one and felt poorly again/ had pain betwween shoulder blades. * ROS:?General/Constitutional:?Patient denies?fatigue , headache.?Change in appetite?denies.?Chills?denies.?Fever?denies.?Ophthalmologic:?Blurred vision?denies.?Discharge?denies.?Pain?denies.?ENT:?Patient denies?decreased sense of smell , any loss of taste , sore throat.?Decreased hearing?denies.?Sore throat?denies.?Swollen glands?denies.?Endocrine:?Cold intolerance?denies.?Excessive thirst?denies.?Heat intolerance?denies.?Weight loss?denies.?Respiratory:?Cough?denies.?Shortness of breath at rest?denies.?Shortness of breath with exertion?denies.?Wheezing?denies.?Cardiovascular:?Chest pain at rest?denies.?Chest pain with exertion?denies.?Irregular heartbeat?denies.?Shortness of breath?denies.?Gastrointestinal:?Abdominal pain?denies.?Change in bowel habits?denies.?Diarrhea?denies.?Nausea?denies.?Rectal bleeding?denies.?Vomiting?denies .?Genitourinary:?Blood in urine?denies.?Difficulty urinating?denies.?Frequent urination?denies.?Urinary incontinence?Denies.?Musculoskeletal:?Patient denies?muscle aches.?Painful joints?denies.?Weakness?denies.?Peripheral Vascular:?Patient denies?red and blue toes.?Skin:?Dry skin?denies.?Itching?denies.?Denies?Mole(s),? changes in moles, new moles or any lesions of concern.?Denies?Photosensitivity.?Rash?denies.?Neurologic:?Dizziness?denies.?Fainting?denies.?Headache?denies.? * Medical History:? * Surgical History:? * Hospitalization/Major Diagno stic Procedure:? * Family History:?Father: dece ased 83 yrs.?Mother: 89 yrs.?2 brother(s) . 1 son(s) , 1 daughter(s) . .? Father- Cardiac and Renal Mother has pacemaker, Denies mental health/substance abuse family history, Denies mental health/substance abuse family history. * Social History:?Tobacco Use:?Tobacco Use/Smoking?Patient is a?nonsmoker,?Additional Findings: Tobacco Non-User?Current non-smoker, currently using no form of tobacco.?Drugs/Alcohol:?Alcohol Screen?Did you have a drink containing alcohol in the past year??Yes,?How often did you have a drink containing alcohol in the past year??2 to 4 times a month (2 points),?How many drinks did you have on a typical day when you were drinking in the past year??1 or 2 drinks (0 point),?How often did you have 6 or more drinks on one occasion in the past year??Never (0 point),?Points?2,?Interpretation?Negative.?Miscellaneous:?Caffeine: yes, frequency:, 3-4 cups per day. Children: yes. Community involvements: yes. Exercise: yes, weights and walks a couple times a week x 1 hour. Home smoke detector use: yes. Housing: owning. Living with: spouse. Marital status: . Occupation: works full-time. Pets: none. no Travel outside of the [place]. * Medications:?TakingIbuprofen 200 MG Tablet 1 tablet with food or milk as needed Orally Three times a dayTaking Ibuprofen 200 MG Tablet 1 tablet with food or milk as needed Orally Three times a dayDiscontinuedAmoxicillin-Pot Clavulanate 875-125 MG Tablet 1 tablet Orally every 12 hrsMedication List reviewed and reconciled with the patientDiscontinued Amoxicillin-Pot Clavulanate 875-125 MG Tablet 1 tablet Orally every 12 hrsMedication List reviewed and reconciled with the patient * Allergies:?N.K.D.A.yes[Maik do Verified] Objective: * Vitals:?Ht: 64, Wt:120, BMI: 20.60, BP:96/60 weight is down 2 pounds since 06-15-24. * ???Past Orders: ???Lab:Complete Blood Count Auto Diff (Order Date - 08/13/2024) (Collection Date - 08/13/2024) ? Value Reference Range ?White Blood Count 5.0 4. 8-10.8 - X10*3/uL ?Red Blood Count 4.03 L 4.20 -5.50 - X10*6/uL ?Hemoglobin 12.6 12.0-16.0 - g/dl ?Hematocrit 39.1 37.0-47.0 - % ?Mean Corpuscular Volume 97.0 80.0-98.0 - fL ?Mean Corpuscular Hemoglobin 31.3 27.0-33.0 - pg ?Mean Corpuscular HGB Conc 32.2 31.0-35.0 - g/dl ?Red Cell Distribution Width 13.3 11.0-16.0 - % ?Platelet Count 269 160-4 00 - X10*3/uL ?Mean Platelet Volume 10.4 9.4-12.3 - fL ?Neutrophils Percent Auto 51.6 45-73 - % ?Imm Gran Pct Auto 0.2 0. 0-0.4 - % ?Lymphocytes Percent Auto 38.4 20-40 - % ?Monocytes Percent Auto 8.0 2-11 - % ?Eosinophils Percent Auto 1.2 0-4 - % ?Basophils Percent Auto 0.6 0-2 - % ?NRBC Pct Auto 0.0 0.0-0. 2 - /100WBC ?Neutrophils Absolute Auto 2.6 2.0-8.3 - x10*3/uL ?Imm Gran Abs Auto 0.01 0. 00-0.03 - X10*3/uL ?Lymphocytes Absolute Auto 1.9 1.2-4.9 - X10*3/uL ?Monocytes Absolute Auto 0.4 0.1-1.2 - X10*3/uL ?Eosinophils Absolute Auto 0.1 0.0-0.4 - X10*3/uL ?Basophils Absolute Auto 0.0 0.0-0.2 - X10*3/uL ?NRBC Abs Auto 0.000 0.0-0. 012 - X10*3/uL ???Lab:Comprehensive [place]. P albertina Fast (Order Date - 08/13/2024) (Collection Date - 08/13/2024) ? Value Reference Range ?Sodium 141 135-145 - mmo l/L ?Bilirubin Total 0.4 0.0- 1.0 - mg/dL ?Aspartate Amino Transferase 16 5-31 - U/L ?Alanine Aminotransferase 14 0-31 - U/L ?Total Protein 7.1 6.5-8. 0 - g/dL ?Albumin Level 4.2 3.5-5. 0 - g/dL ?Alkaline Phosphatase 57 39-117 - U/L ?Potassium 4.1 3.3-5.1 - mmol/L ?Chloride 107 96-108 - mm ol/L ?Carbon Dioxide 27 22-29 - mmol/L ?Anion Gap 11 L 12-20 - ?Blood Urea Nitrogen 17 H 9-16 - mg/dL ?Creatinine 0.90 0.5-1.4 - mg/dL ?Estimated Glomerular Filt Rate > 60 - ?Glucose Fasting 96 60-9 9 - mg/dL ?Calcium 9.6 8.4-10.2 - m g/dL ???Lab:Lipid Panel (Order Da te - 08/13/2024) (Collection Date - 08/13/2024) ? Value Reference Range ?Triglycerides 81 <150 - mg/dL ?Cholesterol 218 H <200 - m g/dL ?LDL Cholesterol Calculated 134 H <100 - mg/dL ?HDL Cholesterol 68 >40 - mg/dL ???Lab:Vitamin D 25-OH Total (Order Date - 08/13/2024) (Collection Date - 08/13/2024) ? Value Reference Range ?Vitamin D 25-OH Total 80.7 >30 - ng/mL ???Lab:UA ClnCatch+Micro w/r flx Cult (Order Date - 08/13/2024) (Collection Date - 08/13/2024) ? Value Reference Range ?Color Urine Yellow - ?Appearance Urine Clear - ?PH 5.5 5.0-9.0 - ?Glucose Urine UA Negative Neg ative - mg/dL ?Urine Blood Negative Negative - ?Specific [place] - Urine 1.025 1.005-1.025 - ?Urine Protein Negative Neg-Tr mikaela - mg/dL ?Urine Ketones Negative Negati ve - mg/dL ?Nitrite Urine Negative Negati ve - ?Leukocyte Esterase Urine Small (1+) A Negative - ?RBC Urine 0-2 0-2 - /HPF ?WBC Urine 6-10 A 0-5 - /HPF ?Squamous Epithelial Cell Urine 3-5 0-2 - /HPF ?Bacteria Urine None Seen None Seen - ?Hyaline Casts Urine 0-2 0-2 - /LPF * Examination: ???General Examination: ?GENERAL APPEARANCE:?well developed, well nourished, in no acute distress.?HEAD:?normocephalic, atraumatic.?EYES:?pupils equal, round, reactive to light and accommodation, sclera non-icteric.?EARS:?normal.?ORAL CAVITY:?mucosa moist.?THROAT:?clear.?NECK/THYROID:?neck supple, full range of motion, no cervical lymphadenopathy, no bruits.?SKIN:?warm and dry, no suspicious lesions with tinea on arm and abdomen.?HEART:?regular rate and rhythm, S1, S2 normal, no murmurs.?LUNGS:?clear to auscultation bilaterally.?BREASTS:?done by machine tracer.?ABDOMEN:?soft, nontender, nondistended, bowel sounds present, normal, no organomegaly , no masses palpable.?RECTAL EXAM:?done by machine tracer.?FEMALE GENITOURINARY:?done by machine tracer.?EXTREMITIES:?no clubbing, cyanosis, or edema.?NEUROLOGIC:?nonfocal, motor strength normal upper and lower extremities, sensory exam intact.? Assessment: * Assessment: 1.?Annual physical exam - Z0 0.00 (Primary)?2.?Atypical chest pain - R07.89?3.?Coronary artery disease involving [place] coronary artery of [place] heart without angina pectoris - I25.10?4.?Encounter for screening for malignant neoplasm of colon - Z12.11?5.?Encounter for screening for malignant neoplasm of rectum - Z12.12?6.?Tinea corporis - B35.4?7.?Vitamin D deficiency - E55.9? Plan: * Treatment: 2.?Atypical chest pain?Imaging: Electrocardiogram (EKG) * Notes: ecg was completely normal??3.?Encounter for screening for malignant neoplasm of colon?LAB: COLOGUARD Notes: order faxed to [facility] ??4.?Encounter for screening for malignant neoplasm of rectum?LAB: COLOGUARD Notes: pending cologuard tresting??5.?Tinea corporis? Start Ketoconazole Cream, 2 %, 1 application, Externally, Once a day, 14 day(s), 60, Refills 4. ?6.?Vitamin D deficiency? Notes: has now over replaced and should decrease to every other day ?? * Procedure Codes:?72098 -ELEC TROCARDIOGRAM, COMPLETE * Follow Up:?1 Year * * Sign off status: Completed true * Provider:?Parrish Martinez MD Date:?0 08/20/2024 Generated for Any rutherford/Zana/eTransmitting on:?12/19/2024 05:05 PM EST History and Physical Notes * HPI (History of Present Illness) Category Sub-Category Detail Notes Category Not es Symptom(s) patient is a 68 yo female here for physical/ was unable to tolerate statins. had fluttering and pain in neck. started the second day. came and went on and off. called cardiology and they thought it was the statin. gave a different one and felt poorly again/ had pain betwween shoulder blades Depression Screening PHQ-9 Little inte rest or pleasure in doing things: Not at all Feeling down, depressed, or hopeless: No t at all Trouble falling or staying asleep, or sl eeping too much: Not at all Feeling tired or having little energy: N ot at all Poor appetite or overeating: Not at all Feeling bad about yourself o r that you are a failure, or have let yourself or your family down: Not at all Trouble concentrating on thi ngs, such as reading the newspaper or watching television: Not at all Moving or speaking so slowly that other people could have noticed; or the opposite, being so fidgety or restless that you have been moving around a lot more than usual: Not at all Thoughts that you would be b jadon off or of hurting yourself in some way: Not at all Total Score: 0 Interpretation and Intervention Depression Valeriae huma Findings: Negative Follow-Up for Depression: : review of PH Q-9 found negative result, no follow-up needed SDOH Questions SDOH Questions In the past year have you been worried about losing housing?: No In the past year have you or any family members you live with been unable to get any of the following when it was really needed? Check all that apply:: None Fall Risk History Have you had any falls with injury i n the past year?: No Have you had two or more falls in the year?: No Communication Needs Communication Needs Does the patient have a hearing impairment: No Does the patient have a vision impairmen t?: Yes ?If yes, what is the vision impairment?: Glasses Does the patient have a cognition impair ment?: No Examination Category Sub-Category Detail Notes Category Not es General Examination GENERAL APPEARANCE: well dev eloped, well nourished, in no acute distress HEAD: normocephalic, atrau matic EYES: pupils equal, round, reactive to light and accommodation, sclera non- icteric EARS: normal THROAT: clear NECK/THYROID: neck supple, full ra nge of motion, no cervical lymphadenopathy, no bruits HEART: regular rate and rhy thm, S1, S2 normal, no murmurs LUNGS: clear to auscultatio n bilaterally ABDOMEN: soft, nontender, non distended, bowel sounds present, normal, no organomegaly , no masses palpable NEUROLOGIC: nonfocal, motor stre ngth normal upper and lower extremities, sensory exam intact SKIN: warm and dry, no saadia picious lesions with tinea on arm and abdomen EXTREMITIES: no clubbing, cyanosi s, or edema BREASTS: done by machine tracer RECTAL EXAM: done by machine tracer FEMALE GENITOURINARY: done by machine tracer ORAL CAVITY: mucosa moist
--- OUTSIDE RECORDS SUMMARY | 2024-12-19 17:05 | XMS_ITS ---
Author Organization Parrish Martinez MD Address [address] [place] [phone] Care Team Providers Care Mortgage Loan Counselor Name Role Phone Parrish Martinez Primary Care Provider Medications Medication SIG (Take, Route, Frequency, Duration) Notes Start Date End Date Status Amoxicillin-Pot Clavulanate 875-125 MG 1 tablet Orally every 12 hrs for 10 days 06/15/2024 Active Encounters Encounter Location Date Provider Diagnosis Parrish Martinez MD [address] [place] [phone] 10/12/2024 Parrish Martinez Acute recurrent maxillary sinusitis J01.01 Assessments Encounter Date Diagnosis (ICD Code) Assessment Notes Treatment Notes Treatment Clinical Notes Section Notes 10/12/2024 Acute recurrent maxillary sinusitis (ICD-10 - J01.01) Plan Of Treatment Medication Medication Name Sig Start Date Stop Date Notes Amoxicillin-Pot Clavulanate 875-125 MG 1 tablet Orally every 12 hrs for 10 days 06/15/2024 Next Appt Details Provider Name:Parrish Keane ier, 08/15/2025 07:45:00 AM, [address], [address], [place], [place], [phone], Provider Name:Parrish Keane ier, 08/22/2025 11:00:00 AM, [address], [address], [place], [place], [phone], Progress Notes * Mariely PADILLAOB:1955 ( 69 yo F)Acc No.[id number]:10/12/2024 Patient:?Sirena Padilla :1955???Age:69 Y???Sex:Female Address:[address] [place] [phone] * Refills? Continue Amoxicillin-Pot Clavulanate Tablet, 875-125 MG, Orally, 20 Tablet, 1 tablet, every 12 hrs, 10 days * true * Date:? Generated for Any rutherford/Zana/eTransmitting on:?12/19/2024 05:05 PM EST
--- OUTSIDE RECORDS SUMMARY | 2024-12-19 17:06 | XMS_ITS | Patient Health Record ---
Author Organization Parrish Martinez MD Address [address] [place] [phone] Care Team Providers Care Moth Proofer Name Role Phone Parrish Martinez Primary Care Provider [phone] Allergies No Known Allergies Results Component Value Reference Range Notes Urine Culture Reviewed date:08/14/2024 11:53:20 AM Interpretation: Performing Lab:[address] [phone] Notes/Report: Urine Culture Report Result Urine Culture < 10,000 cfu/ml Complete Blood Count Auto Di ff Reviewed date:08/13/2024 12:29:45 PM Interpretation: Performing Lab:[address] [phone] Notes/Report: White Blood Count 5.0 4.8-10.8 X10*3/uL [...] 0.00-0.03 X10*3/uL Lymphocytes Absolute Auto 1.9 1.2-4.9 X10*3/ uL Monocytes Absolute Auto 0.4 0.1-1.2 X10*3/uL Eosinophils Absolute Auto 0.1 0.0-0.4 X10*3/u L Basophils Absolute Auto 0.0 0.0-0.2 X10*3/uL NRBC Abs Auto 0.000 0.0-0.012 X10*3/uL Comprehensive [place]. Panel Fa st Reviewed date:08/13/2024 12:43:16 PM Interpretation: Performing Lab:[facility], [address] [place] [phone] Notes/Report: Sodium 141 135-145 mmol/L Potassium 4.1 3.3-5.1 mmol/L Chloride 107 96-108 mmol/L Carbon Dioxide 27 22-29 mmol/L Anion Gap 11 12-20 Blood Urea Nitrogen 17 9-16 mg/dL Creatinine 0.90 0.5-1.4 mg/dL Estimated Glomerular Filt Rate > 60 NOTE: For -Palestinian individuals, multiply the result by 1.210. Chronic [...] Panel Reviewed date:08/13/2024 12:29:56 PM Interpretation: Performing Lab:[address] [phone] Notes/Report: Triglycerides 81 <150 mg/dL Desirable Triglyceride: [...] Total Reviewed date:08/13/2024 12:33:39 PM Interpretation: Performing Lab:[address] [phone] Notes/Report: Vitamin D 25-OH Total 80.7 >30 [...] t Reviewed date:08/13/2024 12:56:12 PM Interpretation: Performing Lab:[facility], [address] [place] [phone] Notes/Report: Urine, Clean Catch Color Urine Yellow Appearance Urine Clear PH 5.5 5.0-9.0 Glucose Urine UA Negative Negative mg/dL Urine Blood Negative Negative Specific [place] - Urine 1.025 1.005-1.025 Urine Protein Negative Neg-Trace mg/dL Urine Ketones Negative Negative mg/dL Nitrite Urine Negative Negative Leukocyte Esterase Urine Small (1+) Negative RBC Urine 0-2 0-2 /HPF WBC Urine 6-10 0-5 /HPF Squamous Epithelial Cell Urine 3-5 0-2 /HPF Bacteria Urine None Seen None Seen Hyaline Casts Urine 0-2 0-2 /LPF Electrocardiogram (EKG) Reviewed date:08/20/2024 11:40:55 AM Interpretation: Performing Lab: Notes/Report: Reason For Referral Reason atheriosclerotic cor onary artery disease Diagnosis 1 Arteriosclerotic cor onary artery disease (I25.10) Referral Organization Parrish Martinez MD Referring Provider First Name Parrish Referring Provider Last Name Michelle Referring Provider Speciality Internal M edicine Referred Provider Tremaine Bella Referred Provider Specialty Cardiovascul ar Disease General Notes Ada Stroud 02:15:24 PM EDT > mailed info to patient Referral Priority Routine Referral Appointment Date 12/13/2024 Medications Medication SIG (Take, Route, Frequency, Duration) Notes Start Date End Date Status Ketoconazole 2 % 1 application Bill Peddler ally Once a day for 14 day(s) 08/20/2024 Active Ibuprofen 200 MG 1 tablet with food o r milk as needed Orally Three times a day Active Amoxicillin-Pot Clavulanate 875-125 MG 1 tablet Orally every 12 hrs for 10 days 06/15/2024 Active Immunizations Vaccine Route Administration Date Status Comme nts Flu Vaccine Unknown 09/03/2014 Administered [facility] Flu Vaccine IM Intramuscular 09/11/2015 Administered [facility] Fluarix Quadrivalent Unknown 09/11/2015 Administered pt recieved it at work. PPSV23 (Pnemovax) Unknown 12/31/2014 Administered [facility] Fluarix Quadrivalent Unknown 09/16/2016 Administered At work TDaP IM Intramuscular 03/16/2017 Administered pt was given the vaccine at [facility]. Fluarix Quadrivalent Unknown 09/19/2018 Administered [facility] Fluarix Quadrivalent IM Intramuscular 09/06/2019 Administe mendoza pt was given the vaccine at [facility]. Shingrix IM Intramuscular 10/25/2019 Administered Tetanus Unknown 03/16/2017 Administered Shingrix IM Intramuscular 02/18/2020 Administered Fluarix Quadrivalent IM Intramuscular 07/14/2020 Adminrafael donaldson [facility] Covid Vaccine Unknown 12/03/2020 Administered Moderna Covid Vaccine Unknown 01/01/2021 Administered Moderna PPSV23 (Pnemovax) IM Intramuscular 03/20/2021 Administered SARS-COV-2 Moderna Unknown 09/18/2021 Administered Social History Tobacco Use: Social History Observation [...] Problem Status W/U Status Risk Notes Problem 55455734 Vitamin D defici ency (E55.9) Active confirmed Problem 18369104 Coronary artery disease involving elim ira coronary artery of elim ir[place] heart without angina pectoris (I25.10) Active confirmed Problem 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 Problem 75014557 Arteriosclerotic coronary artery disease (I25.10) Active confirmed Vital Signs Blood pressure diastolic 60 mm Hg 08/20/2024 katja ght is down 2 pounds since 06-15-24 Height 64 in 08/20/2024 weight is down 2 pounds since 06-15-24 Blood pressure systolic 96 mm Hg 08/20/2024 weig ht is down 2 pounds since 06-15-24 Weight 120 lbs 08/20/2024 weight is down 2 pounds since 06-15-24 BMI 20.60 kg/m2 08/20/2024 weight is down 2 pounds since 06-15-24 Encounters Encounter Location Date Provider Diagnosis Parrish Martinez MD [address] [place] [id number] 08/20/2024 Parrish Martinez Atypical chest pain R07.89 ; Annual physical exam Z00.00 ; Coronary artery disease involving elim ira coronary artery of elim ir[place] heart without angina pectoris I25.10 ; Encounter for screening for malignant neoplasm of colon Z12.11 ; Encounter for screening for malignant neoplasm of rectum Z12.12 ; Tinea corporis B35.4 and Vitamin D deficiency E55.9 Parrish Martinez MD [address] [place] [id number] 08/13/2024 Parrish Martinez Vitamin D deficiency E55.9 and Arteriosclerotic coronary artery disease I25.10 Parrish Martinez MD [address] [place] [id number] 06/15/2024 Parrish Martinez Arteriosclerotic coronary artery disease I25.10 and Acute recurrent maxillary sinusitis J01.01 Parrish Martinez MD [address] [place] [id number] 06/15/2024 Parrish Martinez MD [address] [place] [id number] 10/12/2024 Parrish Martinez Acute recurrent maxillary sinusitis J01.01 Assessments Encounter Date Diagnosis (ICD Code) Assessment Notes Treatment Notes Treatment Clinical Notes Section Notes 08/20/2024 Atypical chest pain (ICD-10 - R07.89) ecg was completely normal 08/20/2024 Annual physical exam (ICD-10 - Z00.00) labs reviewed and discussed with patient 08/13/2024 Vitamin D deficiency (ICD-10 - E55.9) 08/13/2024 Arteriosclerotic coronary artery disease (ICD-10 - I25.10) 06/15/2024 Arteriosclerotic coronary artery disease (ICD-10 - I25.10) was intolerant of the statins. needs to go back to dr bella to get on repatha. need the results of exercise test./reports scanned in chart 06/15/2024 Acute recurrent maxillary sinusitis (ICD-10 - J01.01) patient verbalized understanding of medication and directions for use 10/12/2024 Acute recurrent maxillary sinusitis (ICD-10 - J01.01) 08/20/2024 Coronary artery disease involving elim ira coronary artery of elim ira heart without angina pectoris (ICD-10 - I25.10) 08/20/2024 Encounter for screening for malignant neoplasm of colon (ICD-10 - Z12.11) order faxed to [facility] 08/20/2024 Encounter for screening for malignant neoplasm of rectum (ICD-10 - Z12.12) pending cologuard tresting 08/20/2024 Tinea corporis (ICD-10 - B35.4) 08/20/2024 Vitamin D deficiency (ICD-10 - E55.9) has now over replaced and should decrease to every other day Plan Of Treatment Pending Test Test Name Order Date Electrocardiogram (EKG) 01/13/2018 BONE DENSITY DEXA 02/19/2019 MAMMOGRAM DIGITAL BILATERAL SCREEN 02/19 Next Appt Details Provider Name:Parrish feldman, 08/15/2025 07:45:00 AM, [address] [place] [address], [address], [phone], Provider Name:Parrish Keane ier, 08/22/2025 11:00:00 AM, [address] [place] [address], [place] [address], [place], [place], [phone], Insurance Providers Payer Name Payer Address Payer Phone Subscriber Number Group Number Insured Name Patient Relationship to Insured Coverage Start Date Coverage End Date MEDICARE NHIC [address]Y [address] [place] [address] [id number] Sirena Padilla Self - patient is the insured 2 [place] [address] [place] [address] [id number] Sirena Padilla Self - patient is the insured Medical (General) History Medical History History ICD Code discussed colonoscopy 2015 w ill do the stool test. had negative cologard 01/27/17. will repeatin 5 years
== END 2024-12-19 15:22 | disposition home or self-care (01) ==
PROVIDERS: PCP Internal Medicine
DX: I25.10 Atherosclerotic heart disease of native coronary artery without angina pectoris (principal); I77.89 Other specified disorders of arteries and arterioles
CPT/HCPCS: 93010; 99214

== ENCOUNTER → 2024-12-19 14:56 | Outpatient (BNVA) | payer MEDICARE, SELFPAY | PROVIDERS: PCP Internal Medicine | DX: I25.10 Atherosclerotic heart disease of native coronary artery without angina pectoris (principal); I77.89 Other specified disorders of arteries and arterioles; Z79.899 Other long term (current) drug therapy | CPT/HCPCS: 93005; 99212 ==

== ENCOUNTER → 2025-01-15 13:24 | Outpatient (REF) | payer MEDICARE, SELFPAY ==
--- NOTE | 2025-01-15 13:26 | CA_ITS ---
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 The calculated ejection fraction is 72% by biplane method. - No obvious valvular pathology seen on this study. - There is mild dilatation of the ascending aorta measuring 4.10 cm. Findings Left Ventricle Normal left ventricular cavity size. There is normal left ventricular wall thickness. The left ventricular systolic function is hyperdynamic. The calculated ejection fraction is 72% by biplane method. There is no evidence of regional wall motion abnormalities. Diastolic function is normal for age. Right Ventricle Normal right ventricular cavity size and systolic function. Atria Both atria are normal in size. Aortic Valve There is a normal trileaflet aortic valve. There is no aortic valve stenosis. There is no aortic valve regurgitation. Mitral Valve The mitral valve appears normal. There is no mitral valve regurgitation. There is no mitral valve stenosis. Pulmonic Valve The pulmonic valve is likely normal. Tricuspid Valve Normal tricuspid valve structure. There is trace tricuspid valve regurgitation. There is no evidence of pulmonary hypertension. Great Vessels The aortic arch is normal in size. There is mild dilatation of the ascending aorta measuring 4.10 cm. Venous The inferior vena cava is normal in size and collapses greater than 50% with inspiration. Pericardium/Pleural There is no evidence of pericardial effusion. Prior Study Comparison No significant change compared to prior study dated: 12/28/2023. change in aortic size; possibly technical. Recommendations, Care & Conclusions No obvious valvular pathology seen on this study. Measurements 2D Linear Measurements IVSd: 0.74 0.6-0.9/0.6-1.0 cm LVIDd: 4.05 3.9-5.3/4.2-5.9 cm LVIDd Index: 2.55 2.4-3.2/2.2-3.1 cm/m2 LVIDs: 3.15 2.0-3.6 cm LVPWd: 0.86 0.7-1.1 cm LA Diam: 2.50 2.7-3.8/3.0-4.0 cm LAIDs Index: 1.57 1.5-2.3 cm/m2 LV Mass: 118.19 67-162/88-224 g LV Mass Index: 74.33 43-95/49-115 g/m2 LVOT Diam: 2.20 3.0+(-)1.3 cm 2D Systolic Function EF 4C: 63.30 >55% EF 2C: 79.80 >55% EF BiP: 72.40 >55% Mitral Valve MV Pk E: 0.66 MV PK A: 0.60 MV Decel Time: 219.00 E/A: 1.10 E'Lateral: 9.36 E'Medial: 8.70 E/E' Med: 7.50 E/E' Lat: 7.00 PHT: 64.00 MVA PHT: 3.44 Decel [place]: 2.99 Aortic Valve AoV Pk Dustin: 1.16 AoV Pk Grad: 5.00 ALMA: 3.70 LVOT LVOT Pk Dustin: 1.04 LVOT Mn Dustin: 0.82 LVOT VTI: 0.23 LVOT Pk Grad: 4.00 LVOT Mn Grad: 3.00 LVOT Diam: 2.20 LVOT Area: 3.80 Diastolic Function MV Pk E: 0.66 MV Pk A: 0.60 E/A: 1.10 E'Medial: 8.70 E/E' Med: 7.50 E' Laterial: 9.36 E/E' Lat: 7.00 Right Ventricle TAPSE (mm): 20.70 TVS' Dustin: 14.60 Tricuspid Valve TR Pk Dustin: 1.65 TR Pk Grad: 11.00 RA Press: 3.00 RVSP: 14.00 Great Vessels Aorta Sinus of Valsalva: 3.10 2.0-3.5 cm Ao Asc: 4.10 2.1-3.4 cm Ao Arch: 2.60 Pulmonary Valve PV Pk Dustin: 0.74 Peak PV Grad: 2.00 Updated in Other Vendor System with Status of Final Marlon Painter MD electronically signed on 01/16/2025 10:19:20 AM with status of Final
--- OUTSIDE RECORDS SUMMARY | 2025-01-15 16:29 | XMS_ITS ---
Author Organization Parrish Martinez MD Address [address] [place] [phone] Care Team Providers Care Engine Generator Assembler Name Role Phone Parrish Martinez Primary Care Provider Results Component Value Reference Range Notes Complete Blood Count Auto Di ff Reviewed date:08/13/2024 12:29:45 PM Interpretation: Performing Lab:[facility], [address] [place] [phone] Notes/Report: White Blood Count 5.0 4.8-10.8 X10*3/uL [...] NRBC Abs Auto 0.000 0.0-0.012 X10*3/uL Comprehensive [place]. Panel Fa st Reviewed date:08/13/2024 12:43:16 PM Interpretation: Performing Lab:[facility], [address] [place] [phone] Notes/Report: Sodium 141 135-145 mmol/L Potassium 4.1 3.3-5.1 mmol/L Chloride 107 96-108 mmol/L Carbon Dioxide 27 22-29 mmol/L Anion Gap 11 12-20 Blood Urea Nitrogen 17 9-16 mg/dL Creatinine 0.90 0.5-1.4 mg/dL Estimated Glomerular Filt Rate > 60 NOTE: For -Tristanian individuals, multiply the result by 1.210. Chronic [...] Panel Reviewed date:08/13/2024 12:29:56 PM Interpretation: Performing Lab:[facility], [address] [place] [phone] Notes/Report: Triglycerides 81 <150 mg/dL Desirable Triglyceride: [...] Total Reviewed date:08/13/2024 12:33:39 PM Interpretation: Performing Lab:[facility], [address] [place] [phone] Notes/Report: Vitamin D 25-OH Total 80.7 >30 [...] t Reviewed date:08/13/2024 12:56:12 PM Interpretation: Performing Lab:[facility], [address] [place] [address] Notes/Report: Urine, Clean Catch Color Urine Yellow Appearance Urine Clear PH 5.5 5.0-9.0 Glucose Urine UA Negative Negative mg/dL Urine Blood Negative Negative Specific [place] - Urine 1.025 1.005-1.025 Urine Protein Negative [...] Location Date Provider Diagnosis Parrish Martinez MD [address] [place] [address] [phone] 08/13/2024 Parrish Martinez Vitamin D deficiency E55.9 and Arteriosclerotic coronary artery disease I25.10 Assessments Encounter Date Diagnosis (ICD Code) Assessment Notes Treatment Notes Treatment Clinical Notes Section Notes 08/13/2024 Vitamin D deficiency (ICD-10 - E55.9) 08/13/2024 Arteriosclerotic coronary artery disease (ICD-10 - I25.10) Plan Of Treatment Next Appt Details Provider Name:Parrish feldman, 08/15/2025 07:45:00 AM, [address] [place] [address], [address], [phone], Provider Name:Parrish feldman, 08/22/2025 11:00:00 AM, [address] [place] [address], [phone], Progress Notes * Andrez PADILLAJoseOB:1955 ( 69 yo F)Acc No.[id number]:08/13/2024 Progress Note Patient:?Sirena PADILLA Provider:?Parrish Martinez MD :1955???Age:68 Y???Sex:Female D ate:08/13/2024 Address:[address] [place], [place] [id number] Subjective: * Chief Complaints: * ???1. Annual labs. * Medical History:? Objective: * Vitals:? Assessment: * Assessment: 1.?Vitamin D deficiency - E5 5.9 (Primary)???2.?Arteriosclerotic coronary artery disease - I25.10??? Plan: * Treatment: 2.?Arteriosclerotic coronary artery disease?LAB: Complete Blood Count Auto Diff (Collection Date & Time - 08/13/2024 08:15 AM) ?LAB: Comprehensive [place]. Panel Fast (Collection Date & Time - 08/13/2024 08:15 AM) ?LAB: Lipid Panel (Collection Date & Time - 08/13/2024 08:15 AM) ?LAB: Vitamin D 25-OH Total (Collection Date & Time - 08/13/2024 08:15 AM) ?LAB: UA ClnCatch+Micro w/rflx Cult (Collection Date & Time - 08/13/2024 08:15 AM) * Procedure Codes:?30592 VENIP UNCT, ROUTINE* * * The named appointment provid er may or may not be the originator of this progress note, and it is not deemed complete until electronically signed by the appointment provider. Sign off status: Pending * Provider:?Parrish Martinez MD Date:?0 08/13/2024 Generated for Any rutherford/Zana/Ankitaitting on:?01/15/2025 04:28 PM EST
--- OUTSIDE RECORDS SUMMARY | 2025-01-15 16:29 | XMS_ITS ---
Author Organization Parrish Martinez MD Address [address] [place] [phone] Care Team Providers Care Museum Registrar Name Role Phone Parrish Martinez Primary Care Provider Medications Medication SIG (Take, Route, Frequency, Duration) Notes Start Date End Date Status Amoxicillin-Pot Clavulanate 875-125 MG 1 tablet Orally every 12 hrs for 10 days 06/15/2024 Active Encounters Encounter Location Date Provider Diagnosis Parrish Martinez MD [address] [place] [phone] 10/12/2024 Parrish Martinez Acute recurrent maxillary sinusitis [...] 07:45:00 AM, [address], [address], [place], [place], [phone], Provider Name:Parrish Keane ier, 08/22/2025 11:00:00 AM, [address], [place], [place], [phone], Progress Notes * Mariely PADILLAOB:1955 ( 69 yo F)Acc No.[id number]:10/12/2024 Patient:?Sirena Padilla :1955???Age:69 Y???Sex:Female Address:[address] [place] [phone] * Refills? Continue Amoxicillin-Pot Clavulanate Tablet, 875-125 MG, Orally, 20 Tablet, 1 tablet, every 12 hrs, 10 days * true * Date:? Generated for Any rutherford/Zana/eTransmitting on:?01/15/2025 04:28 PM EST
--- OUTSIDE RECORDS SUMMARY | 2025-01-15 16:29 | XMS_ITS | Patient Health Record ---
Author Organization Parrish Martinez MD Address [address] [place] [phone] Care Team Providers Care Central Office Frame Wirer Name Role Phone Parrish Martinez Primary Care Provider Allergies No Known Allergies Results Component Value Reference Range Notes Urine Culture Reviewed date:08/14/2024 11:53:20 AM Interpretation: Performing Lab:[address] [phone] Notes/Report: Urine Culture Report Result Urine Culture < 10,000 cfu/ml Complete Blood Count Auto Di ff Reviewed date:08/13/2024 12:29:45 PM Interpretation: Performing Lab:[address] [phone] Notes/Report: White Blood Count 5.0 4.8-10.8 X10*3/uL [...] NRBC Abs Auto 0.000 0.0-0.012 X10*3/uL Comprehensive [place]. Panel Fa st Reviewed date:08/13/2024 12:43:16 PM Interpretation: Performing Lab:[facility], [address] [place] [phone] Notes/Report: Sodium 141 135-145 mmol/L Potassium 4.1 3.3-5.1 mmol/L Chloride 107 96-108 mmol/L Carbon Dioxide 27 22-29 mmol/L Anion Gap 11 12-20 Blood Urea Nitrogen 17 9-16 mg/dL Creatinine 0.90 0.5-1.4 mg/dL Estimated Glomerular Filt Rate > 60 NOTE: For -Saudi [place] individuals, multiply the result by 1.210. Chronic [...] Panel Reviewed date:08/13/2024 12:29:56 PM Interpretation: Performing Lab:[address] [phone] Notes/Report: Triglycerides 81 <150 mg/dL Desirable Triglyceride: [...] Total Reviewed date:08/13/2024 12:33:39 PM Interpretation: Performing Lab:[address] [phone] Notes/Report: Vitamin D 25-OH Total 80.7 >30 [...] t Reviewed date:08/13/2024 12:56:12 PM Interpretation: Performing Lab:[facility], [address] [place] [phone] Notes/Report: Urine, Clean Catch Color Urine Yellow Appearance Urine Clear PH 5.5 5.0-9.0 Glucose Urine UA Negative Negative mg/dL Urine Blood Negative Negative Specific [place] - Urine 1.025 1.005-1.025 Urine Protein Negative [...] Date Status Ketoconazole 2 % 1 application Wire Mesh Knitter ally Once a day for 14 day(s) 08/20/2024 Active Ibuprofen 200 MG 1 tablet with food o r milk as needed Orally Three times a day Active Amoxicillin-Pot Clavulanate 875-125 MG 1 tablet Orally every 12 hrs for 10 days 06/15/2024 Active Immunizations Vaccine Route Administration Date Status Comme nts Flu Vaccine Unknown 09/03/2014 Administered [facility] Flu Vaccine IM Intramuscular 09/11/2015 Administered [facility] Fluarix Quadrivalent Unknown 09/11/2015 Administered pt recieved it at work. PPSV23 (Pnemovax) Unknown 12/31/2014 Administered [facility] Fluarix Quadrivalent Unknown 09/16/2016 Administered At work TDaP IM Intramuscular 03/16/2017 Administered pt was given the vaccine at [facility]. Fluarix Quadrivalent Unknown 09/19/2018 Administered [facility] Fluarix Quadrivalent IM Intramuscular 09/06/2019 Administe mendoza pt was given the vaccine at [facility]. Shingrix IM Intramuscular 10/25/2019 Administered Tetanus Unknown 03/16/2017 Administered Shingrix IM Intramuscular 02/18/2020 Administered Fluarix Quadrivalent IM Intramuscular 07/14/2020 Adminrafael donaldson [facility] Covid Vaccine Unknown 12/03/2020 Administered Moderna Covid [...] Problem Status W/U Status Risk Notes Problem 49483865 Vitamin D defici ency (E55.9) Active confirmed Problem 08526829 Coronary artery disease involving [place] coronary artery of [place] heart without angina pectoris (I25.10) Active confirmed Problem Grief (240012137) 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 Problem 94571915 Arteriosclerotic coronary artery disease (I25.10) Active confirmed [...] 06-15-24 Encounters Encounter Location Date Provider Diagnosis aPrrish Martinez MD [address] [place] [id number] 08/20/2024 Parrish Martinez Atypical chest pain R07.89 ; Annual physical exam Z00.00 ; Coronary artery disease involving [place] coronary artery of [place] heart without angina pectoris I25.10 ; Encounter for screening for malignant neoplasm of colon Z12.11 ; Encounter for screening for malignant neoplasm of rectum Z12.12 ; Tinea corporis B35.4 and Vitamin D deficiency E55.9 Parrish Martinez MD [address] [place] [id number] 08/13/2024 Parrish Martinez Vitamin D deficiency E55.9 and Arteriosclerotic coronary artery disease I25.10 Parrish Martinez MD [address] [place] [id number] 06/15/2024 Parrish Martinez Arteriosclerotic coronary artery disease I25.10 and Acute recurrent maxillary sinusitis J01.01 Parrish Martinez MD [address] [place] [id number] 06/15/2024 Parrish Martinez MD [address] [place] [id number] 10/12/2024 Parrish Martinez Acute recurrent maxillary sinusitis [...] - J01.01) 08/20/2024 Coronary artery disease involving [place] coronary artery of [place] heart without angina pectoris (ICD-10 - I25.10) 08/20/2024 Encounter for screening for malignant neoplasm of colon (ICD-10 - Z12.11) order faxed to [facility] 08/20/2024 Encounter for screening for malignant neoplasm [...] Details Provider Name:Parrish feldman, 08/15/2025 07:45:00 AM, [address] [place] [address], [address], [phone], Provider Name:Parrish Keane ier, 08/22/2025 11:00:00 AM, [address] [place] [address], [place] [address], [place], [place], [phone], Insurance Providers Payer Name Payer Address Payer Phone Subscriber Number Group Number Insured Name Patient Relationship to Insured Coverage Start Date Coverage End Date MEDICARE NHIC [address]Y [address] [place] [address] [id number] Sirena Padilla Self - patient is the insured 2 [place] [address] [place] [address] [id number] Sirena Padilla Self - patient is the insured Medical (General) History Medical History History ICD Code discussed colonoscopy 2015 w ill do the stool test. had negative cologard 01/27/17. will repeatin 5 years
--- OUTSIDE RECORDS SUMMARY | 2025-01-15 16:29 | XMS_ITS ---
Author Organization Parrish Martinez MD Address [address] [place] [phone] Care Team Providers [employer] Advisor Name Role Phone Parrish Martinez Primary Care Provider Allergies No Known Allergies Results Component Value Reference Range Notes Electrocardiogram (EKG) Reviewed date:08/20/2024 11:40:55 AM Interpretation: Performing Lab: Notes/Report: 0 REASON FOR VISIT Annual Medications Medication SIG (Take, Route, Fr equency, Duration) Notes Start Date End Date Status Ketoconazole 2 % 1 application Director Of Loss Prevention ally Once a day for 14 day(s) [...] Problem Status W/U Status Risk Notes Problem [id number] 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 (I25.10) Active confirmed Vital Signs Blood pressure systolic 96 mm Hg 08/20/20 24 Blood pressure diastolic 60 mm Hg 024 Height 64 in 08/20/2024 Weight 120 lbs 08/20/2024 BMI 20.60 kg/m2 08/20/2024 weight is down 2 pounds [facility] raina 06-15-24 Encounters Encounter Location Date Provider Diagnosis Parrish Martinez MD [address] [place] [address] [place] [phone] 08/20/2024 Parrish Martinez Atypical chest pain R07.89 ; Annual physical exam Z00.00 ; 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 I25.10 ; Encounter [...] with patient 08/20/2024 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 (ICD-10 - I25.10) 08/20/2024 Encounter for screening for malignant neoplasm of colon (ICD-10 - Z12.11) order faxed to [facility] 08/20/2024 Encounter for screening for malignant neoplasm of rectum (ICD-10 - Z12.12) pending [facility] tresting 08/20/2024 Tinea corporis (ICD-10 - B35.4) 08/20/2024 Vitamin D deficiency (ICD-10 - E55.9) has now over replaced and should decrease to every other day Plan Of Treatment Medication Medication Name Sig Start Date Stop Date Notes Ketoconazole 2 % 1 application Director Of Loss Prevention ally Once a day for 14 day(s) 08/20/2024 Treatment Notes Assessment Notes Atypical chest pain ecg was completely n ormal Annual physical exam labs reviewed and d iscussed with patient Encounter for screening for malignant neoplasm of colon order faxed to [facility] Encounter for screening for malignant neoplasm of rectum pending cologuard tresting Vitamin D deficiency has now over replac ed and should decrease to every other day Next Appt Details Follow Up: 1 Year, Reason: Provider Name:Parrish feldman, 08/15/2025 07:45:00 AM, [address] [place] [address], [address], [phone], Provider Name:Parrish feldman, 08/22/2025 11:00:00 AM, [address] [place] [address], [place] [address], [place], [place], [phone], Progress Notes * Mariely PADILLAOB:1955 ( 68 yo F)Acc No.[id number]:08/20/2024 Progress Notes Patient:?Sirena Padilla Provider:?Parrish Martinez MD :1955???Age:68 Y???Sex:Female D ate:08/20/2024 Address:[address] [place], [place] [id number] Subjective: * Chief Complaints: * ???Annual * [...] Auto 0.000 0.0-0. 012 - X10*3/uL ???Lab:[facility] [place]. P albertina Fast (Order Date - 08/13/2024) [...] mg/dL ?Urine Blood Negative Negative - ?Specific P[place] - Urine 1.025 1.005-1.025 - ?Urine Protein [...] normal, no murmurs.?LUNGS:?clear to auscultation bilaterally.?BREASTS:?done by planning assistant.?ABDOMEN:?soft, nontender, nondistended, bowel sounds present, normal, no organomegaly , no masses palpable.?RECTAL EXAM:?done by planning assistant.?FEMALE GENITOURINARY:?done by planning assistant.?EXTREMITIES:?no clubbing, cyanosis, or edema.?NEUROLOGIC:?nonfocal, motor strength normal upper and lower extremities, sensory exam intact.? Assessment: * Assessment: 1.?Annual physical exam - Z0 0.00 (Primary)?2.?Atypical chest pain - R07.89?3.?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 - I25.10?4.?Encounter for [...] to every other day ?? * Procedure Codes:?02570 -ELEC TROCARDIOGRAM, COMPLETE * Follow Up:?1 Year * * Sign off status: Completed true * Provider:?Parrish Martinez MD Date:?0 08/20/2024 Generated for Any rutherford/Zana/eTransmitting on:?01/15/2025 04:28 PM EST History and Physical Notes * [...] cyanosi s, or edema BREASTS: done by planning assistant RECTAL EXAM: done by planning assistant FEMALE GENITOURINARY: done by planning assistant ORAL CAVITY: mucosa moist
== END ==
LOC: HO.CARD 13:24
PROVIDERS: PCP Internal Medicine
DX: I77.89 Other specified disorders of arteries and arterioles (principal)
CPT/HCPCS: 93306

== ENCOUNTER → 2025-01-15 13:26 | Outpatient (BNV) | payer MEDICARE, SELFPAY | PROVIDERS: PCP Internal Medicine; Visit Provider Internal Medicine | DX: I71.21 Aneurysm of the ascending aorta, without rupture (principal) | CPT/HCPCS: 93306 ==

== ENCOUNTER 2025-08-15 10:54 | Outpatient (REF) | payer MEDICARE, SELFPAY ==
[2025-08-15 10:58] LABS: MANUAL DIFF FLAG NO
[2025-08-15 11:17] LABS: Hematocrit 41.1 % (37.0-47.0); Hemoglobin 13.0 g/dl (12.0-16.0); Imm Gran Abs Auto 0.01 X10*3/uL (0.00-0.03); Imm Gran Pct Auto 0.2 % (0.0-0.4); Lymphocytes Absolute Auto 1.5 X10*3/uL (1.2-4.9); Mean Corpuscular HGB Conc 31.6 g/dl (31.0-35.0); Mean Corpuscular Hemoglobin 30.4 pg (27.0-33.0); Mean Corpuscular Volume 96.3 fL (80.0-98.0); NRBC Abs Auto 0.000 X10*3/uL (0.0-0.012); NRBC Pct Auto 0.0 /100WBC (0.0-0.2); Platelet Count 275 X10*3/uL (160-400); Red Blood Count 4.27 X10*6/uL (4.20-5.50); White Blood Count 4.4 X10*3/uL (4.8-10.8)
[2025-08-15 11:18] LABS: Appearance Urine Clear; Glucose Urine UA Negative (Negative); PH 6.0 (5.0-9.0); Specific Gravity - Urine 1.010 (1.005-1.025); UMIC TRIGGER UACC YES
[2025-08-15 11:38] LABS: Alanine Aminotransferase 21 U/L (0-31); Albumin Level 4.3 g/dL (3.5-5.0); Alkaline Phosphatase 69 U/L (39-117); Anion Gap 9 (12-20); Aspartate Amino Transferase 24 U/L (5-31); Blood Urea Nitrogen 12 mg/dL (9-16); Calcium 9.5 mg/dL (8.4-10.2); Carbon Dioxide 30 mmol/L (22-29); Chloride 108 mmol/L (96-108); Cholesterol 242 mg/dL (<200); Estimated Glomerular Filt Rate > 60; HDL Cholesterol 70 mg/dL (>40); Potassium 4.4 mmol/L (3.3-5.1); Sodium 143 mmol/L (135-145); Total Protein 6.9 g/dL (6.5-8.0); Triglycerides 75 mg/dL (<150)
[2025-08-15 13:57] LABS: UACC Culture Trigger YES
== END 2025-08-15 10:55 | disposition home or self-care (01) ==
LOC: HO.LNP 10:54
PROVIDERS: Visit Provider Internal Medicine
DX: I25.10 Atherosclerotic heart disease of native coronary artery without angina pectoris (principal); E55.9 Vitamin D deficiency, unspecified
CPT/HCPCS: 80053; 80061; 81001; 82306; 85025; 87086